=== PATIENT | female | born 1940 | race Caucasian/White ===

== ENCOUNTER 2017-09-29 04:46 | Emergency (ER) | payer MEDICARE, OTHER ==
[~2017-09-29] VITALS: Ht 170.2 cm; Wt 61.2 kg
[2017-09-29 06:28] VITALS: BP 175/80
[2017-09-29] MEDS ORDERED: KETOROLAC TROMETH 30 MG/ML 1ML VIAL IM ONE (07:15)
[2017-09-29] MEDS ORDERED: HYDROcodone-ACET 5/325MG TAB PO ONE ×2 (07:15)
== END 2017-09-29 08:44 | disposition home or self-care (01) ==
LOC: EDBD 04:46 → ER 04:54
DX: S52.501A Unspecified fracture of the lower end of right radius, initial encounter for closed fracture (principal); I10 Essential (primary) hypertension; Z88.6 Allergy status to analgesic agent
CPT/HCPCS: 29125; 72125; 72128; 73090; 96372; 99284; J1885